=== PATIENT | female | born 1985 | race Caucasian/White ===

== ENCOUNTER 2020-01-02 11:09 | Day surgery (SDC) | payer OTHER ==
[2019-12-26 14:53] VITALS: BMI 37.4
[2020-01-02] MEDS ORDERED: PROPOFOL 20 ML ONE (12:24)
[2020-01-02] MEDS ORDERED: ONDANSETRON 4 MG/2 ML VIAL ONE (12:24)
[2020-01-02] MEDS ORDERED: MIDAZOLAM HCL 2 MG/2 ML SINGLE DOSE VIAL ONE (12:24)
[2020-01-02] MEDS ORDERED: LIDOCAINE HCL/PF 2% SDV 5ML VIAL ONE (12:24)
[2020-01-02] MEDS ORDERED: DEXAMETHASONE SOD PHOSPHATE 4 MG/1 ML VIAL ONE (12:24)
[2020-01-02] MEDS ORDERED: BUPIVACAINE HCL/PF 0.25% (2.5MG/ML) 10 ML VIAL ONE (12:31)
[2020-01-02] MEDS ORDERED: BUPIVACAINE HCL/PF 0.25% (2.5MG/ML) 10 ML VIAL IJ ONE ×2 (13:01→13:15)
[2020-01-02] MEDS ORDERED: oxyCODONE HCL 5 MG TABLET PO PRN ×2 (14:26)
[2020-01-02] MEDS ORDERED: ONDANSETRON 4 MG/2 ML VIAL IVPUSH PRN (14:26)
[2020-01-02] MEDS ORDERED: PROMETHAZINE HCL 25 MG/1 ML VIAL IVPUSH PRN (14:26)
[2020-01-02] MEDS ORDERED: oxyCODONE HCL 5 MG TABLET PO ONE (14:45)
[2020-01-02 15:03] VITALS: TEMP 98.4
[2020-01-02 15:47] VITALS: BP 112/77; PULSE 75
--- NOTE | 2020-01-02 16:00 | OP ---
DATE OF OPERATION: 01/02/2020 PREOPERATIVE DIAGNOSES: 1. Right wrist extensor tenosynovitis and stenosing of the extensor tendons 4th dorsal compartment. 2. Right wrist mass. POSTOPERATIVE DIAGNOSES: 1. Right wrist extensor tenosynovitis and stenosing of the extensor tendons 4th dorsal compartment. 2. Right wrist mass. OPERATIVE PROCEDURE: 1. Right wrist 4th dorsal compartment extensor release and tenosynovectomy and lengthening of retinaculum. 2. Right wrist mass excision. SURGEON: Darin Muñoz MD [employer] MITIGATION OFFICER: MARY Marie ANESTHESIA: General. COMPLICATIONS: None. ESTIMATED BLOOD LOSS: Minimal. INDICATIONS FOR PROCEDURE: The patient is a 34-year-old female with the above finding indicated for operative treatment. Risks, benefits and alternatives were discussed with her at length. Proper informed consent was obtained. PROCEDURE: After proper identification of patient and correct operative site, patient was brought to the operating room, placed supine on the table. All prominences were well padded. General anesthesia was given. Right upper extremity was prepped and draped in usual sterile fashion. Well-padded tourniquet was placed over the sterile prep. Esmarch bandage to exsanguinate the right upper extremity. Tourniquet was inflated to 250 mmHg. Longitudinal incision made over the dorsal aspect of the wrist. Incision was taken sharply through skin with blunt and sharp dissection through the subcutaneous tissue. Extensor retinaculum was identified. There were several small masses on the ulnar aspect of the retinaculum which were excised and sent for pathologic evaluation. Retinaculum was cut and opened. The 3rd dorsal compartment was transposed and left transposed. This compartment appeared normal. The 4th dorsal compartment, however, was severely thickened and stenotic and the tendons had an hourglass appearance within this. There was also tenosynovitis and a tenosynovectomy was performed which was also sent for pathologic evaluation. The extensor retinaculum was repaired in a lengthened position using step cut with 4-0 Vicryl sutures. The fingers were taken through range of motion. There were no adhesions or catching of the tendons anymore. The wound was irrigated and repaired in layers using 4-0 Vicryl and 4-0 Monocryl sutures. Steri-Strips, sterile dressing and a wrist splint were placed. Patient was reversed from anesthesia, brought to the recovery room in stable condition. She tolerated the procedure well. Jason Manzo, the costumer assistant, was integral throughout the procedure. Procedure could not have been performed without a skilled operative costumer assistant. DARIN MUÑOZ M.D. [id number]
--- NOTE | 2020-01-07 11:53 | PATH ---
Surgical Pathology Report Patient Name: CAROLINA ARMSTRONG [facility]. Rec. #: [id number] /Age/Gender: 1985 (Age: 34) / F Account: [id number] Location: [facility] Taken: 01/02/2020 Received: 01/02/2020 Reported: 01/07/2020 Physicians: Duong Doll M.D. Specimen(s) Received A: TENOSYNOVIUM RIGHT HAND B: RIGHT WRIST MASS Clinical History Right hand tenosynovitis Final Diagnosis A. TENOSYNOVIUM, EXCISION: PORTION OF TENOSYNOVIAL TISSUE WITH FOCAL FIBROSIS. B. RIGHT WRIST MASS, EXCISION: CONSISTENT WITH GANGLION CYST. Electronically Signed Wilder Bailey M.D. Gross Description A. Received in formalin labeled "tenosynovium," is a 1.3 x 0.3 x 0.2 cm arreaga portion of soft tissue, consistent with tenosynovium. The specimen is submitted in toto in one cassette. B. Received in formalin labeled "right wrist mass," is a 0.4 x 0.3 x 0.2 cm arreaga soft tissue mass. The specimen is submitted in toto in one cassette. /01/03/2020 saudi01/03/2020
== END 2020-01-02 15:48 | disposition home or self-care (01) ==
LOC: FASU 11:09
PROVIDERS: ATTEND Orthopaedic Surgery Hand Surgery
PROC: 0LB50ZZ Excision of Right Lower Arm and Wrist Tendon, Open Approach (ICD-10-PCS; 2020-01-02)
PROC: 0L850ZZ Division of Right Lower Arm and Wrist Tendon, Open Approach (ICD-10-PCS; 2020-01-02)
PROC: 0LB50ZZ Excision of Right Lower Arm and Wrist Tendon, Open Approach (ICD-10-PCS; principal; 2020-01-02 12:50)
DX: M65.841 Other synovitis and tenosynovitis, right hand (principal); M67.833 Other specified disorders of tendon, right wrist; M67.431 Ganglion, right wrist
CPT/HCPCS: 82962; 84703; 88304-TC; 94760